=== PATIENT | male | born 1975 | race Caucasian/White ===

== ENCOUNTER 2024-01-22 10:33 | Emergency (ER) | payer OTHER, SELFPAY ==
[2024-01-22] VITALS (12 sets, daily range): BP systolic 109–123; BP diastolic 78–93; PULSE 69–80; RESP 12–16; TEMP 36.3–36.6; O2SAT 96–100
--- NOTE | ~2024-01-22 | XR_ITS ---
CHEST RADIOGRAPH, PA AND LATERAL CLINICAL HISTORY: syncope . COMPARISON: None available TECHNIQUE: PA and lateral views of the chest. FINDINGS The cardiomediastinal silhouette is unremarkable. The lungs are clear. Visualized osseous structures and soft tissues are unremarkable. IMPRESSION: No focal infiltrate or effusion. Reviewed, dictated and finalized at location A.
--- NOTE | 2024-01-22 10:40 | ECG_ITS ---
Test Date: 2024-01-22 10:45:29 Measurements Intervals [place] Rate: 64 P: 54 ND: 160 QRS: 3 QRSD: 112 T: 5 QT: 384 QTc: 398 Interpretive Statements SINUS RHYTHM INCOMPLETE RIGHT BUNDLE BRANCH BLOCK [90+ ms QRS DURATION, TERMINAL R IN V1/V2, 40+ ms S IN I/aVL/V4/V5/V6] BORDERLINE ECG No previous ECG available for comparison Electronically Signed On 01-22-2024 13:48:34 CDT by Kike Narayan M.D.
[2024-01-22 11:31] LABS: Basophils Percent Auto 0.4 % (0.2-1.2); Eosinophils Percent Auto 0.8 % (0-4.4); Hematocrit 43.6 % (42.0-52.0); Hemoglobin 14.7 g/dL (14.0-18.0); Immature Granulocyte Absolute 0.02 K/mm3 (0.00-0.031); Immature Granulocyte Percent A 0.4 % (0-0.5); Lymphocytes Absolute Auto 1.13 K/mm3 (0.9-3.2); Lymphocytes Percent Auto 22.3 % (18.3-44.2); Mean Corpuscular HGB Conc 33.7 g/dl (32-36); Mean Corpuscular Hemoglobin 32.5 pg (26-34); Mean Corpuscular Volume 96.2 fl (80-100); Mean Platelet Volume 10.2 fl (7.4-10.4); Monocytes Absolute Auto 0.3 K/mm3 (0.1-0.6); Monocytes Percent Auto 5.7 % (2.6-8.5); Neutrophils Absolute Auto 3.6 K/mm3 (1.3-6.7); Neutrophils Percent Auto 70.4 % (45.5-73.1); Platelet Count Result 226 k/mm3 (150-375); Red Blood Count 4.53 M/mm3 (4.6-6.20); Red Cell Distribution Width 12.2 % (11.5-14.5); White Blood Count 5.1 K/mm3 (4.5-10.0)
[2024-01-22 11:41] LABS: Alanine Aminotransferase 19 U/L (6-50); Albumin Level 4.4 g/dL (3.5-5.1); Alkaline Phosphatase 59 U/L (38-126); Anion Gap 9 mmol/L (4-12); Aspartate Amino Transferase 28 U/L (17-59); Bilirubin,Total 0.5 mg/dL (0.2-1.3); Blood Urea Nitrogen 14 mg/dL (9-20); Calcium 9.7 mg/dL (8.4-10.2); Carbon Dioxide 27 mmol/L (22-30); Chloride 102 mmol/L (98-107); Estimated Glomerular Filt Rate 50; Glucose 92 mg/dL (65-110); Sodium 138 mmol/L (137-145)
[2024-01-22 12:35] LABS: Troponin I < 0.012 ng/mL (0.000-0.034)
--- NOTE | 2024-01-22 13:34 | ED_ITS ---
HPI - Syncope General Chief Complaint: Syncope Stated Complaint: syncope Time Seen by Provider: 01/22/24 10:55 History of Present Illness HPI narrative: Patient is a 48-year-old male who presents ER after having a syncopal episode while getting her cup. He had his chin up and was having his neck trimmed when he became hot and sweaty and lost consciousness for 20-36 seconds. He had some jerking left arm. No chest pain or chest pressure. No racing heart. She did feel lightheaded has he began pass out. He has not had anything to eat or drink this morning. He reports he is in otherwise good health. Review of Systems Review of Systems: All systems reviewed & are unremarkable except as noted in HPI and below Constitutional: Constitutional: Reports no additional constitutional complaints ENT: Reports system reviewed and no additional complaints, except as documented Cardiovascular: Cardiovascular: Reports no additional cardiovascular complaints Respiratory: Respiratory: Reports no additional respiratory complaints Gastrointestinal: Gastrointestinal: Reports no additional gastrointestinal complaints Neurologic: Reports syncope, Denies headache(s), Denies focal weakness and Denies numbness PMFSH Past Medical History Medical History (Updated 01/22/24 @ 13:38 by Mu Santoyo MD) Healthy adult male Surgical History Surgical History (Updated 01/22/24 @ 13:35 by Mu Santoyo MD) No pertinent past surgical history Exam Narrative: GENERAL: Well-appearing, well-nourished, and in no acute distress. HEAD: Normocephalic, atraumatic. ENT: Mucous membranes moist. NECK: Supple. CHEST: Clear to auscultation. No respiratory distress. HEART: Regular rate and rhythm. Normal peripheral pulses. ABDOMEN: Soft, nontender, nondistended. EXTREMITIES: Normal range of motion. No edema. SKIN: Warm, dry, no rash. NEURO: Alert and oriented x3. PSYCH: Normal mood and affect. Course Course Emergency Course: patient resting comfortably. Labs unremarkable with exception of creatinine 1.5. Recommend follow-up with PCP for further evaluation. Symptoms felt to be related to vasovagal syncope. Vital Signs Vital signs: Vital Signs Temperature 97.4 F L 01/22/24 10:42 Pulse Rate 74 01/22/24 10:42 Respiratory Rate 16 01/22/24 10:42 Blood Pressure 122/90 01/22/24 10:42 Pulse Oximetry 100 01/22/24 10:42 Oxygen Delivery Room Air 01/22/24 10:42 Temperature 97.8 F 01/22/24 10:56 Pulse Rate 70 01/22/24 13:16 Respiratory Rate 13 01/22/24 13:16 Blood Pressure 118/88 01/22/24 13:16 Pulse Oximetry 96 01/22/24 13:16 Oxygen Delivery Room Air 01/22/24 10:42 MDM - Syncope Lab Data 01/22/24 11:24 01/22/24 11:24 Labs: Lab Results 01/22/24 Range/Units 11:24 WBC 5.1 (4.5-10.0) K/mm3 RBC 4.53 L (4.6-6.20) M/mm3 Hgb 14.7 (14.0-18.0) g/dL Hct 43.6 (42.0-52.0) % MCV 96.2 (80-100) fl MCH 32.5 (26-34) pg MCHC 33.7 (32-36) g/dl RDW 12.2 (11.5-14.5) % Plt Count 226 (150-375) k/mm3 MPV 10.2 (7.4-10.4) fl Immature Gran % (Auto) 0.4 (0-0.5) % Neut % (Auto) 70.4 (45.5-73.1) % Lymph % (Auto) 22.3 (18.3-44.2) % [place] % (Auto) 5.7 (2.6-8.5) % Eos % (Auto) 0.8 (0-4.4) % Baso % (Auto) 0.4 (0.2-1.2) % Lymph # (Auto) 1.13 (0.9-3.2) K/mm3 [place] # (Auto) 0.3 (0.1-0.6) K/mm3 Eos # (Auto) 0.0 (0-0.3) K/mm3 Baso # (Auto) 0.0 (0.0-0.1) K/mm3 Abs Immat Gran (auto) 0.02 (0.00-0.031) K/mm3 Absolute Neuts (auto) 3.6 (1.3-6.7) K/mm3 Absolute Nucleated RBC 0.000 (0.0-0.012) K/mm3 Nucleated RBC % 0.0 (0.0-0.2) % Sodium 138 (137-145) mmol/L Potassium 5.0 (3.4-5.0) mmol/L Chloride 102 (98-107) mmol/L Carbon Dioxide 27 (22-30) mmol/L Anion Gap 9 (4-12) mmol/L BUN 14 (9-20) mg/dL Creatinine 1.50 H (0.7-1.3) mg/dL Estim Creat Clear Calc Not Reportable Estimated GFR 50 L (59 - ) Glucose 92 (65-110) mg/dL Calcium 9.7 (8.4-10.2) mg/dL Total Bilirubin 0.5 (0.2-1.3) mg/dL AST 28 (17-59) U/L ALT 19 (6-50) U/L Alkaline Phosphatase 59 (38-126) U/L Troponin I < 0.012 (0.000-0.034) ng/mL Total Protein 8.0 (6.3-8.2) g/dL Albumin 4.4 (3.5-5.1) g/dL Imaging Data Radiologist's impression: ITS Impressions Chest X-Ray 01/22/24 11:09 IMPRESSION: No focal infiltrate or effusion. ECG Data EKG #1: ECG completion date: 01/22/24 ECG completion time: 10:45 EKG Interpretation: normal rate (64), sinus rhythm, no ectopy, normal QRS, RBBB ( Incomplete) and normal QT Discharge Plan Discharge Clinical Impression: Syncope, Creatinine elevation Patient Disposition: Home, Self-Care Condition: Stable Instructions: Syncope (ED) Additional Instructions: done episode of syncope. Follow-up with your primary care doctor. Your creatinine was slightly elevated which may be related to dehydration but also could be related to chronic kidney issues. Return the ER if you develop chest pain shortness of breath, you have recurrent loss of consciousness, or you have additional concerns. Follow-up/Referrals: Rocael Tijerina MD [Physician] - 1 Week UNKNOWN,DOCTOR [Primary Care Provider] -
== END 2024-01-22 13:49 | disposition home or self-care (01) ==
PROVIDERS: Emergency Provider Emergency Medicine
DX: R55 Syncope and collapse (principal); R79.89 Other specified abnormal findings of blood chemistry
CPT/HCPCS: 36415; 71046; 80053; 84484; 85025; 93005; 99284